=== PATIENT | female | born 1995 ===

== ENCOUNTER 2020-04-02 08:40 | Outpatient (REF) | payer BC, SELFPAY ==
[2020-04-02 20:26] LABS: HCT 40.5 % (36.0-46.0); HGB 13.4 g/dL (11.2-15.7); MCHC 33.1 % (32.0-36.0); MCV 90.8 fL (80-95); MPV 10.4 fL (8.0-11.0); Platelet Count 266 10^3/uL (130-400); RBC 4.46 10^6/uL (3.93-5.22); RDW 11.4 % (11.7-14.6); RDW-SD 38.2 fL; WBC 7.06 10^3/uL (4.4-10.8)
[2020-04-02 21:09] LABS: TSH (W/Ref FT4) 3.54 uIU/mL (0.36-3.74)
== END 2020-04-02 09:00 ==
LOC: NCHCN 08:40
PROVIDERS: Visit Provider Nurse Practitioner Community Health
DX: F41.8 Other specified anxiety disorders (principal)
CPT/HCPCS: 85027; 84443

== ENCOUNTER 2021-12-24 18:10 | Outpatient (REF) | payer BC, SELFPAY ==
[2021-12-24 21:18] LABS: Hemoglobin A1C 4.9 % (<5.7)
[2021-12-24 21:31] LABS: ALT 20 U/L (14-59); AST 12 U/L (15-37); Albumin 4.4 g/dL (3.4-5.0); Alkaline Phosphatase 84 U/L (46-116); Anion Gap 12.5 mmol/L (3-11); BUN 16 mg/dL (7-18); Bilirubin, Total 0.6 mg/dL (0.2-1.0); CO2 23.5 mmol/L (21.0-32.0); CREATININE 0.7 mg/dL (0.55-1.02); Calcium 8.7 mg/dL (8.5-10.1); Calculated LDL 145 mg/dL (<100); Chloride 104 mmol/L (98-107); Cholesterol 220 mg/dL (<200); Glucose 97 mg/dL (74-106); HDL Cholesterol 46 mg/dL (40-60); Sodium 140 mmol/L (136-145); TSH (W/Ref FT4) 1.91 uIU/mL (0.36-3.74); Triglyceride 145 mg/dL (<150)
[2021-12-30 10:33] LABS: Testosterone, Free 1.15 ng/dL (0.06-1.08); Testosterone, Total 46 ng/dL (8-60)
== END 2021-12-24 18:11 | disposition home or self-care (01) ==
LOC: NCHCN 18:10
PROVIDERS: Visit Provider Nurse Practitioner Family
DX: Z00.00 Encounter for general adult medical examination without abnormal findings (principal); Z13.220 Encounter for screening for lipoid disorders; Z13.1 Encounter for screening for diabetes mellitus; Z13.29 Encounter for screening for other suspected endocrine disorder; E66.9 Obesity, unspecified
CPT/HCPCS: 80053; 80061; 84402; 84403; 83036; 84443

== ENCOUNTER 2022-03-03 17:22 | Outpatient (REF) | payer BC, SELFPAY ==
[2022-03-03 21:11] LABS: Anion Gap 4.4 mmol/L (3-11); BUN 12 mg/dL (7-18); CO2 24.6 mmol/L (21.0-32.0); CREATININE 0.7 mg/dL (0.55-1.02); Calcium 8.7 mg/dL (8.5-10.1); Chloride 104 mmol/L (98-107); Glucose 77 mg/dL (74-106); Potassium 3.7 mmol/L (3.5-5.1); Sodium 133 mmol/L (136-145)
== END 2022-03-03 17:23 | disposition home or self-care (01) ==
LOC: NCHCN 17:22
PROVIDERS: Visit Provider Nurse Practitioner Family
DX: L68.0 Hirsutism (principal); E66.9 Obesity, unspecified
CPT/HCPCS: 80048

== ENCOUNTER 2022-03-08 16:32 | Outpatient (REF) | payer BC, SELFPAY ==
[2022-03-08 16:07] LABS: Anion Gap 9.9 mmol/L (3-11); BUN 21 mg/dL (7-18); CO2 25.1 mmol/L (21.0-32.0); CREATININE 0.7 mg/dL (0.55-1.02); Calcium 9.1 mg/dL (8.5-10.1); Chloride 105 mmol/L (98-107); Glucose 82 mg/dL (74-106); Potassium 4.1 mmol/L (3.5-5.1); Sodium 140 mmol/L (136-145)
== END 2022-03-08 16:33 | disposition home or self-care (01) ==
LOC: NCHCN 16:32
PROVIDERS: Visit Provider Nurse Practitioner Family
DX: L68.0 Hirsutism (principal); E66.9 Obesity, unspecified
CPT/HCPCS: 80048